=== PATIENT | male | born 1955 | race Caucasian/White ===

== ENCOUNTER → 2025-01-24 | Outpatient (CLI) | payer MEDICARE, OTHER ==
[~2025-01-24] MED LIST: LEVOFLOXACIN500 MG PO; NO DAILY MEDS; VICODIN ES 7501 TAB PO
[2025-01-25 13:07] LABS: ANTI-DSDNA ANTIBODIES <1 IU/mL (0-9)
[2025-01-25 15:07] LABS: ANGIOTENSIN-CONVERTING ENZYME 75 U/L (14-82)
[2025-01-25 16:08] LABS: PROTEIN S - FUNCTIONAL 127 % (63-140)
== END | disposition home or self-care (01) ==
LOC: LAB 10:33
PROVIDERS: ATTEND Ophthalmology
DX: H47.011 Ischemic optic neuropathy, right eye (principal)